=== PATIENT | female | born 1995 | race Caucasian/White ===

== ENCOUNTER 2019-09-03 07:57 | Emergency (ER) | payer OTHER ==
[~2019-09-03] VITALS: Ht 165.1 cm; Wt 81.7 kg
[2019-09-03] MEDS ORDERED: ADDERALL 30 MG30 MG PO (08:10)
[2019-09-03] MEDS ORDERED: DEPAKOTE 250MG250 M1 PO (08:11)
[2019-09-03] MEDS ORDERED: SEROQUEL 50 MG50 MG PO (08:11)
[2019-09-03] MEDS ORDERED: WELLBUTRIN XL300 MG PO (08:12)
[2019-09-03] MEDS ORDERED: ATIVAN1 M1 PO (08:13)
[2019-09-03] MEDS ORDERED: NEURONTIN 300M300 M2 PO (08:13)
[2019-09-03 08:51] LABS: HEMATOCRIT 38.3 % (37.0-47.0); HEMOGLOBIN 12.5 gm/dL (12.0-15.0); MCH 26.4 pg (26.0-34.0); MCHC 32.6 g/dL (28.0-37.0); RBC 4.73 mil/uL (4.20-5.00); RDW 13.9 % (10.5-14.5); WBC 16.8 thou/uL (4.0-11.0)
[2019-09-03 08:54] LABS: CREATININE 1.2 mg/dL (0.6-1.0); POTASSIUM 3.1 mmol/L (3.5-5.1)
[2019-09-03 09:00] LABS: ALBUMIN 4.2 g/dL (3.4-5.0); DIRECT BILIRUBIN 0.1 mg/dL (<0.1-0.2); SALICYLATE 2.7 mg/dL (2.8-20.0); TOTAL BILIRUBIN 0.5 mg/dL (<0.1-1.0); TOTAL PROTEIN 8.4 g/dL (6.4-8.2)
--- NOTE | 2019-09-03 09:43 | EKG ---
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: [facility] : 1995 Requested By: Viri Justin Order Number: [id number] MD: Leoncio Welch Measurements Intervals [place] Rate: 98 P: 70 [place]: 137 QRS: 2 QRSD: 100 T: 17 QT: 359 QTc: 459 Interpretive Statements Sinus rhythm Probable left atrial enlargement RSR' in V1 or V2, right VCD or RVH Nonspecific T abnormalities, anterior leads No previous ECG available for comparison Electronically Signed On 09-03-2019 9:42:27 CDT by Leoncio Welch [email or web address] <ELECTRONICALLY SIGNED> By: Leoncio Welch MD 09/03/19 0942 Leoncio Welch MD /EPI
[2019-09-03 10:34] LABS: AMP/METHAMP POSITIVE (Negative); BARBITURATES Negative (Negative); BENZODIAZEPINES Negative (Negative); COCAINE Negative (Negative); METHADONE Negative (Negative); OPIATES Negative (Negative); PCP Negative (Negative)
[2019-09-03 13:44] VITALS: BP 103/72
== END 2019-09-03 13:50 | disposition home or self-care (01) ==
LOC: ER 07:57
PROVIDERS: Emergency Medicine
DX: F15.10 Other stimulant abuse, uncomplicated (principal); R45.86 Emotional lability; R45.1 Restlessness and agitation; Z79.899 Other long term (current) drug therapy